=== PATIENT | female | born 1940 | race Caucasian/White ===

== ENCOUNTER → 2023-09-16 15:30 | Outpatient (REF) | payer MEDICARE, SELFPAY ==
[2023-09-17 09:57] LABS: % Basophils 0.6 % (0-2); % Eosinophils 2.6 % (0-6); % Immature Granulocytes 0.3 % (0-0.5); % Lymphocytes 22.4 % (20.5-51.1); % Monocytes 6.9 % (1.7-9.3); % Neutrophils 67.2 % (42.2-75.2); Absolute Eosinophils 0.2 10^3/uL (0-0.7); Absolute Lymphocytes 1.5 10^3/uL (1.2-3.4); Absolute Monocytes 0.5 10^3/uL (0.1-0.6); Absolute Neutrophils 4.5 10^3/uL (1.4-6.5); Hematocrit 43.5 % (37.0-47.0); Hemoglobin 14.5 g/dL (12.0-16.0); Mean Corp Hgb Conc. 33.3 g/dL (33.0-37.0); Mean Corpuscular Hgb 31.6 pg (27.0-31.0); Mean Corpuscular Volume 94.8 fL (81.0-99.0); Mean Platelet Volume 10.9 fL (7.4-10.4); Nucleated Red Blood Cells % 0 %; Platelet Count 185 10^3/uL (130-400); Red Blood Cell Count 4.59 10^6/uL (4.20-5.40); Red Cell Dist. Width 13.5 % (11.5-14.5); White Blood Cell Count 6.7 10^3/uL (4.8-10.8)
[2023-09-17 10:31] LABS: ALT (SGPT) 18 U/L (0-35); AST (SGOT) 28 U/L (14-36); Albumin 4.1 g/dl (3.5-5.0); Alkaline Phosphatase 99 U/L (38-126); Blood Urea Nitrogen 18 mg/dl (7-17); Carbon Dioxide 25 mmol/L (22-30); Chloride 101 mmol/L (98-107); Glucose 121 mg/dl (70-99); HDL Cholesterol 52 mg/dl; LDL Cholesterol, Calculated 100 mg/dl; Potassium 4.8 mmol/L (3.5-5.1); Sodium 138 mmol/L (135-145); Total Bilirubin 1.1 mg/dl (0.2-1.3); Total Cholesterol 185 mg/dl (50-199); Triglyceride 166 mg/dl (10-149); Very Low Density Lipoprotein 33 mg/dl (0-30); eGFR > 60.00
[2023-09-17 11:00] LABS: TSH 2.64 uIU/ml (0.47-4.68)
== END ==
LOC: CLAB 15:30
PROVIDERS: ATTENDING PHYSICIAN Family Medicine
DX: Z13.0 Encounter for screening for diseases of the blood and blood-forming organs and certain disorders involving the immune mechanism (principal); I10 Essential (primary) hypertension; R73.01 Impaired fasting glucose; E03.9 Hypothyroidism, unspecified; E78.5 Hyperlipidemia, unspecified
CPT/HCPCS: 80053; 80061; 83036; 84443; 85025

== ENCOUNTER → 2024-04-17 08:47 | Outpatient (REF) | payer MEDICARE, SELFPAY | LOC: HWRAD 08:47 | PROVIDERS: ATTENDING PHYSICIAN Orthopaedic Surgery; FAMILY PHYSICIAN Family Medicine; REFERRING PHYSICIAN Specialist | DX: M81.0 Age-related osteoporosis without current pathological fracture (principal) | CPT/HCPCS: 77080 ==